=== PATIENT | female | born 1950 | race Caucasian/White ===

== ENCOUNTER 2022-10-14 02:40 | Inpatient (IN) | payer MEDICAID ==
[~2022-10-14] VITALS: Ht 165.1 cm; Wt 82.6 kg
[2022-10-14] VITALS (23 sets, daily range): BP systolic 12–214; BP diastolic 60–136; PULSE 70–134; RESP 15–25; TEMP 97–97.8; O2SAT 95–100
[2022-10-14] MEDS ORDERED: FUROSEMIDE 100 MG/10 ML VIAL IVP ONE (02:45)
[2022-10-14] MEDS ORDERED: NITROGLYCERIN 50 MG/D5W PREMIX 250 ML IV ONE (02:45)
[2022-10-14 03:12] LABS: BLOOD GAS PH 7.179 (7.35-7.45)
[2022-10-14 03:13] LABS: BLOOD GAS BASE EXCESS -9.6 mmol/L (-2.0-2.0); BLOOD GAS O2 SAT% 98.8 % (92.0-98.5); BLOOD GAS PCO2 52.1 mmHg (35-45); BLOOD GAS PO2 171.5 mmHg (75-100)
[2022-10-14 03:14] LABS: BASOPHILS # (AUTO) 0.1 K/uL (0.00-0.22); BASOPHILS % (AUTO) 0.5 % (0.0-2.0); EOSINOPHILS # (AUTO) 0.2 K/uL (0-0.4); EOSINOPHILS % (AUTO) 1.6 % (0.0-4.0); HEMATOCRIT 39.8 % (36-48); LYMPHOCYTES # (AUTO) 7.1 K/uL (2.5-16.5); LYMPHOCYTES % (AUTO) 58.4 % (20.5-51.1); MEAN CORPUSCULAR HEMOGLOBIN 27 pg (27-31); MEAN CORPUSCULAR HGB CONC 33 g/dL (33-37); MEAN CORPUSCULAR VOLUME 82.3 fL (80-94); MONOCYTES # (AUTO) 0.7 K/uL (0.8-1.0); MONOCYTES % (AUTO) 6.1 % (1.7-9.3); NEUTROPHILS % (AUTO) 33.4 % (42.2-75.2); PLATELET COUNT (AUTO) 214 K/uL (140-450); RED BLOOD CELL COUNT(AUTO) 4.83 MIL/uL (4.20-5.40); RED CELL DISTRIBUTION WIDTH 15.5 % (11.6-13.7); WHITE BLOOD COUNT (AUTO) 12.1 K/uL (4.8-10.8)
[2022-10-14 03:23] LABS: ALBUMIN 3.4 g/dL (3.4-5.0); ANION GAP 13.4 (8-16); CALCIUM 8.2 mg/dL (8.5-10.1); CARBON DIOXIDE 27.6 mmol/L (21-32); CREATININE 1.2 mg/dL (0.6-1.3); TOTAL BILIRUBIN 0.2 mg/dL (0.0-1.0); TOTAL PROTEIN, SERUM 8.4 g/dL (6.4-8.2)
[2022-10-14 03:36] LABS: LACTIC ACID 3.7 mmol/L (0.4-2.0)
[2022-10-14 03:36] LABS: FLU A ANTIGEN negative (NEGATIVE); FLU B ANTIGEN NEGATIVE (NEGATIVE)
[2022-10-14] MEDS ORDERED: cefTRIAXone 1,000 MG VIAL ONE (03:39)
[2022-10-14 05:05] LABS: BLOOD GAS PH 7.313 (7.35-7.45)
[2022-10-14 05:06] LABS: BLOOD GAS BASE EXCESS -3.5 mmol/L (-2.0-2.0); BLOOD GAS HCO3 22.8 mmol/L (22-26); BLOOD GAS O2 SAT% 99.8 % (92.0-98.5); BLOOD GAS PCO2 46.1 mmHg (35-45); BLOOD GAS PO2 425.6 mmHg (75-100)
[2022-10-14] MEDS ORDERED: ZOLPIDEM 5 MG TAB PO PRN (06:00)
[2022-10-14] MEDS ORDERED: guaiFENesin DM 200/20 MG-10 ML 10 ML UDC PO PRN (06:00)
[2022-10-14] MEDS ORDERED: ACETAMINOPHEN 325 MG TAB PO PRN (06:00)
[2022-10-14] MEDS ORDERED: POTASSIUM CHLORIDE 10 MEQ TABER PO PRN (06:00)
[2022-10-14] MEDS ORDERED: DOCUSATE SODIUM 100 MG GELCAP PO PRN (06:00)
[2022-10-14] MEDS ORDERED: ALBUTEROL SULFATE/IPRATROPIU 3 ML SOL IH PRN (06:00)
[2022-10-14] MEDS ORDERED: NACL 0.9% 250 ML IV ONE (06:00)
[2022-10-14] MEDS ORDERED: HYDROcodone/APAP 7.5/325 MG 1 TAB PO PRN (06:00)
[2022-10-14] MEDS ORDERED: ONDANSETRON 4 MG/2 ML VIAL IM/IVP PRN (06:00)
[2022-10-14 06:37] LABS: INR 0.93 (0.8-1.2); PARTIAL THROMBOPLASTIN TIME 22.1 secs (22-35.6); PROTHROMBIN TIME 9.8 secs (10.8-13.4)
[2022-10-14] MEDS ORDERED: FUROSEMIDE 40 MG/4 ML VIAL IVP SCH (09:00)
[2022-10-14] MEDS: PANTOPRAZOLE 40 MG TABEC PO SCH (09:19)
[2022-10-14] MEDS: AZITHROMYCIN 250 MG TAB PO SCH (09:20)
[2022-10-14] MEDS ORDERED: hydrALAZINE 20 MG/ML VIAL IVP PRN (10:00)
[2022-10-14] MEDS ORDERED: DEXTROSE 50% 50 ML SYR IVP PRN (10:45)
[2022-10-14] MEDS ORDERED: ALBUTEROL SULFATE/IPRATROPIU 3 ML SOL IH SCH (11:00)
[2022-10-14] MEDS: BLOOD GLUCOSE MONITORING 1 DEV DEV FS SCH ×3 (11:10→20:49)
[2022-10-14 11:28] LABS: BLOOD GAS BASE EXCESS -1.6 mmol/L (-2.0-2.0); BLOOD GAS HCO3 23.1 mmol/L (22-26); BLOOD GAS PCO2 38.7 mmHg (35-45); BLOOD GAS PH 7.393 (7.35-7.45); BLOOD GAS PO2 67.3 mmHg (75-100)
[2022-10-14 11:29] LABS: BLOOD GAS O2 SAT% 93.4 % (92.0-98.5)
[2022-10-14 11:33] LABS: CHOL/HDL RATIO 4.7 (1-4.5); FREE T4 (FREE THYROXINE) 0.94 ng/dL (0.76-1.46); THYROID STIMULATING HORMONE 0.87 uIU/mL (0.34-3.74)
[2022-10-14] MEDS: ALBUTEROL SULFATE/IPRATROPIU 3 ML SOL IH SCH ×2 (13:46→19:12)
[2022-10-14] MEDS: ATORVASTATIN 20 MG TAB PO SCH (14:01)
[2022-10-14 18:58] LABS: APPEARANCE,URINE CLEAR (CLEAR); BILIRUBIN,URINE NEGATIVE (NEGATIVE); BLOOD, URINE TRACE-I (NEGATIVE); COLOR,URINE YELLOW (YELLOW); LEUKOCYTE ESTERASE ,URINE NEGATIVE (NEGATIVE); NITRITE, URINE NEGATIVE (NEGATIVE); PH,URINE 5.5 (5.0-9.0); PROTEIN,URINE NEGATIVE (NEGATIVE); UGLUCOSE NEGATIVE (NEGATIVE); UROBILINOGEN,URINE 0.2 EU/dL (0.2 - 1)
[2022-10-14 19:15] LABS: BACTERIA,URINE FEW /HPF (None Seen); RBC,URINE 0-5 /HPF (0-5); SQUAMOUS EPITHELIAL CELL,UR 0-3 (FEW) /LPF (0-3 (FEW)); WBC,URINE 0-5 /HPF (0-5)
[2022-10-14] MEDS: carvediloL 3.125 MG TAB PO SCH (20:31)
[2022-10-14] MEDS: INSULIN LISPRO SLIDING SCALE 100 UNITS/ML VIAL SUBQ PRN (20:52)
[2022-10-14] MEDS ORDERED: carvediloL 3.125 MG TAB PO SCH (21:00)
[2022-10-15] VITALS (11 sets, daily range): BP systolic 114–150; BP diastolic 58–75; PULSE 56–79; RESP 16–20; TEMP 97.1–98.4; O2SAT 95–100
[2022-10-15] MEDS: ALBUTEROL SULFATE/IPRATROPIU 3 ML SOL IH SCH ×4 (01:03→18:54)
[2022-10-15 06:23] LABS: BASOPHILS % (AUTO) 0.3 % (0.0-2.0); EOSINOPHILS # (AUTO) 0.1 K/uL (0-0.4); EOSINOPHILS % (AUTO) 1.2 % (0.0-4.0); HEMATOCRIT 33.8 % (36-48); HEMOGLOBIN 10.9 g/dL (12.0-16.0); LYMPHOCYTES # (AUTO) 2.6 K/uL (2.5-16.5); LYMPHOCYTES % (AUTO) 36.3 % (20.5-51.1); MEAN CORPUSCULAR HEMOGLOBIN 26 pg (27-31); MEAN CORPUSCULAR HGB CONC 32 g/dL (33-37); MEAN CORPUSCULAR VOLUME 81.4 fL (80-94); MONOCYTES # (AUTO) 0.6 K/uL (0.8-1.0); MONOCYTES % (AUTO) 8.9 % (1.7-9.3); NEUTROPHILS # (AUTO) 3.9 K/uL (1.8-7.7); NEUTROPHILS % (AUTO) 53.3 % (42.2-75.2); PLATELET COUNT (AUTO) 160 K/uL (140-450); RED BLOOD CELL COUNT(AUTO) 4.15 MIL/uL (4.20-5.40); WHITE BLOOD COUNT (AUTO) 7.3 K/uL (4.8-10.8)
[2022-10-15] MEDS: BLOOD GLUCOSE MONITORING 1 DEV DEV FS SCH ×4 (06:33→21:00)
[2022-10-15 06:34] LABS: MAGNESIUM 2.1 mg/dL (1.8-2.4); PHOSPHORUS 4.5 mg/dL (2.5-4.9)
[2022-10-15 06:50] LABS: ALBUMIN 2.8 g/dL (3.4-5.0); ANION GAP 11.8 (8-16); CALCIUM 8.2 mg/dL (8.5-10.1); CREATININE 0.9 mg/dL (0.6-1.3); POTASSIUM 3.8 mmol/L (3.5-5.1); TOTAL BILIRUBIN 0.4 mg/dL (0.0-1.0)
[2022-10-15] MEDS: ATORVASTATIN 20 MG TAB PO SCH (08:38)
[2022-10-15] MEDS: AZITHROMYCIN 250 MG TAB PO SCH (08:39)
[2022-10-15] MEDS: carvediloL 3.125 MG TAB PO SCH ×2 (08:39→22:03)
[2022-10-15] MEDS: FUROSEMIDE 40 MG/5 ML ORAL SOL UDC PO SCH (08:40)
[2022-10-15] MEDS: PANTOPRAZOLE 40 MG TABEC PO SCH (08:40)
[2022-10-15] MEDS ORDERED: FUROSEMIDE 40 MG/5 ML ORAL SOL UDC GT SCH (09:00)
[2022-10-15] MEDS: predniSONE 20 MG TAB PO SCH (11:20)
[2022-10-15] MEDS: INSULIN LISPRO SLIDING SCALE 100 UNITS/ML VIAL SUBQ PRN ×3 (11:22→22:13)
[2022-10-16] VITALS (9 sets, daily range): BP systolic 142–187; BP diastolic 54–95; PULSE 59–78; RESP 16–20; TEMP 97–98; O2SAT 94–99
[2022-10-16] MEDS: ALBUTEROL SULFATE/IPRATROPIU 3 ML SOL IH SCH ×3 (01:33→13:18)
[2022-10-16 06:10] LABS: BASOPHILS % (AUTO) 0.2 % (0.0-2.0); EOSINOPHILS % (AUTO) 0.5 % (0.0-4.0); HEMATOCRIT 34.9 % (36-48); HEMOGLOBIN 11.7 g/dL (12.0-16.0); LYMPHOCYTES # (AUTO) 2.4 K/uL (2.5-16.5); LYMPHOCYTES % (AUTO) 31.8 % (20.5-51.1); MEAN CORPUSCULAR HEMOGLOBIN 27 pg (27-31); MEAN CORPUSCULAR HGB CONC 33 g/dL (33-37); MEAN CORPUSCULAR VOLUME 80.8 fL (80-94); MONOCYTES # (AUTO) 0.5 K/uL (0.8-1.0); NEUTROPHILS # (AUTO) 4.6 K/uL (1.8-7.7); NEUTROPHILS % (AUTO) 60.5 % (42.2-75.2); PLATELET COUNT (AUTO) 179 K/uL (140-450); RED BLOOD CELL COUNT(AUTO) 4.32 MIL/uL (4.20-5.40); RED CELL DISTRIBUTION WIDTH 14.5 % (11.6-13.7); WHITE BLOOD COUNT (AUTO) 7.5 K/uL (4.8-10.8)
[2022-10-16 06:36] LABS: ALBUMIN 3.1 g/dL (3.4-5.0); ANION GAP 11.6 (8-16); CALCIUM 8.5 mg/dL (8.5-10.1); CARBON DIOXIDE 26.7 mmol/L (21-32); CREATININE 0.9 mg/dL (0.6-1.3); POTASSIUM 3.3 mmol/L (3.5-5.1); TOTAL BILIRUBIN 0.5 mg/dL (0.0-1.0); TOTAL PROTEIN, SERUM 7.7 g/dL (6.4-8.2)
[2022-10-16 06:38] LABS: MAGNESIUM 1.9 mg/dL (1.8-2.4); PHOSPHORUS 4.5 mg/dL (2.5-4.9)
[2022-10-16] MEDS: BLOOD GLUCOSE MONITORING 1 DEV DEV FS SCH ×2 (07:04→11:30)
[2022-10-16] MEDS: carvediloL 3.125 MG TAB PO SCH (08:09)
[2022-10-16] MEDS: ATORVASTATIN 20 MG TAB PO SCH (08:09)
[2022-10-16] MEDS: FUROSEMIDE 40 MG/5 ML ORAL SOL UDC PO SCH (08:09)
[2022-10-16] MEDS: PANTOPRAZOLE 40 MG TABEC PO SCH (08:09)
[2022-10-16] MEDS: predniSONE 20 MG TAB PO SCH (08:10)
[2022-10-16] MEDS: AZITHROMYCIN 250 MG TAB PO SCH (08:10)
[2022-10-16] MEDS ORDERED: PRED20TA5 PO (10:13)
[2022-10-16] MEDS ORDERED: ATOR20TA40 PO (10:13)
[2022-10-16] MEDS ORDERED: FURO40SO PO (10:13)
[2022-10-16] MEDS ORDERED: CARV3.122 PO (10:13)
[2022-10-16] MEDS ORDERED: PANT40EC56 PO (10:13)
[2022-10-16] MEDS ORDERED: AZIT250T11 PO (10:13)
[2022-10-16] MEDS ORDERED: CLONIDINE HYDROCHLORIDE 0.1 MG TAB PO STA (12:35)
== END 2022-10-16 15:19 | disposition home or self-care (01) | DRG 720 ==
LOC: MED 02:40 → MIC 06:04 → MTU 23:25
PROVIDERS: ADMIT Student in an Organized Health Care Education/Training Program; ATTEND Student in an Organized Health Care Education/Training Program
PROC: 5A09357 Assistance with Respiratory Ventilation, Less than 24 Consecutive Hours, Continuous Positive Airway Pressure (ICD-10-PCS; principal; 2022-10-14)
DX: A41.9 Sepsis, unspecified organism (principal); I50.41 Acute combined systolic (congestive) and diastolic (congestive) heart failure; E87.20 Acidosis, unspecified; J96.01 Acute respiratory failure with hypoxia; J96.02 Acute respiratory failure with hypercapnia; J18.9 Pneumonia, unspecified organism; I11.0 Hypertensive heart disease with heart failure; E78.00 Pure hypercholesterolemia, unspecified; E66.9 Obesity, unspecified; R73.03 Prediabetes; Z20.822 Contact with and (suspected) exposure to COVID-19; I16.1 Hypertensive emergency; Z68.30 Body mass index [BMI] 30.0-30.9, adult
CPT/HCPCS: 36415; 36600; 71045; 71275; 76536; 80053; 81001; 82803; 82948; 83036; 83605; 83735; 83880; 84100; 84439; 84443; 84484; 85025; 85379; 85610; 85730; 87040; 87081; 87086; 93970; 94640; 94660; 96365; 96375; 99291; 99292; J0360; J0696; J1644; J1815; J1940; J3490; J7060; J7512; Q0092; Q9967